=== PATIENT | female | born 1950 ===

== ENCOUNTER 2022-09-11 05:39 | Day surgery (SDC) | payer OTHER ==
[~2022-09-11 05:39] MED LIST: COZAAR100 MG PO; CRESTOR20 MG PO; GLIMEPIRIDE4 MG; PLAVIX75 MG PO; SYNJARDY 12.5-1 EACH PO; TOPROL XL100 M1 PO
[2022-09-11] MEDS ORDERED: MACROBID 100 M100 MG PO (09:37)
[2022-09-11] MEDS ORDERED: ULTRACET PO (09:38)
== END 2022-09-11 13:20 | disposition home or self-care (01) ==
LOC: CIR.AMB 05:39 → EDSTATUS 09:00 → SURH 09:00 → CIR.AMB 09:00
PROVIDERS: ATTEND Obstetrics & Gynecology Gynecology
DX: N81.6 Rectocele (principal); N81.5 Vaginal enterocele; N81.9 Female genital prolapse, unspecified; I10 Essential (primary) hypertension; E11.9 Type 2 diabetes mellitus without complications; Z20.822 Contact with and (suspected) exposure to COVID-19